=== PATIENT | female | born 1975 | race Caucasian/White ===

== ENCOUNTER 2017-08-01 08:24 | Emergency (ER) | payer MEDICAID ==
[~2017-08-01] VITALS: Ht 154.9 cm; Wt 95.3 kg
[~2017-08-01 08:24] MED LIST: FOLI200T13 PO
[2017-08-01] MEDS ORDERED: SODIUM CHLORIDE 0.9% 1,000ML IVBOLUS ONE (09:00)
[2017-08-01] MEDS ORDERED: ONDANSETRON 2MG/ML, 2ML IVPush ONE (09:00)
[2017-08-01 09:18] LABS: RAPID INFLUENZA A Negative (Negative); RAPID INFLUENZA B Negative (Negative)
[2017-08-01] MEDS ORDERED: ACETAMINOPHEN 325 MG TABLET PO ONE (10:00)
[2017-08-01] MEDS ORDERED: KETOROLAC 30 MG/1 ML IM ONE (10:00)
[2017-08-01] MEDS ORDERED: ONDANSETRON 2MG/ML, 2ML ONE (10:11)
[2017-08-01] MEDS ORDERED: KETOROLAC 30 MG/1 ML ONE (10:11)
[2017-08-01] MEDS ORDERED: ACETAMINOPHEN 325 MG TABLET ONE (10:11)
[2017-08-01 10:53] VITALS: BP 132/72
== END 2017-08-01 11:11 | disposition home or self-care (01) ==
LOC: ED 10:45
DX: B34.9 Viral infection, unspecified (principal)
CPT/HCPCS: 71020; 87400; 96361; 96372; 96374; 99285; J1885; J2405; J7030

== ENCOUNTER 2020-09-10 15:45 | Emergency (ER) | payer MEDICAID ==
[~2020-09-10] VITALS: Ht 157.5 cm; Wt 105.0 kg
[2020-09-10 15:59] VITALS: BP 149/100
[2020-09-10 16:33] LABS: MICROSCOPIC NOT IND
--- NOTE | 2020-09-10 17:43 | NUR ---
NO ANSWER IN LOBBY
--- NOTE | 2020-09-10 18:17 | NUR ---
NO ANSWER IN LOBBY
--- NOTE | 2020-09-10 18:30 | NUR ---
NO BLAYNE IN LOBBY.
[2020-09-10 19:02] LABS: BASOPHILS % (AUTO) 1 % (0-1); EOSINOPHILS % (AUTO) 2 % (1-7); LYMPHOCYTES % (AUTO) 33 % (22-44); MEAN CORPUSCULAR HEMOGLOBIN 31.6 pg (27.0-34.8); MEAN PLATELET VOLUME 7.3 fL (7.4-10.4); MONOCYTES % (AUTO) 6 % (2-9); NEUTROPHILS % (AUTO) 58 % (42-75); PLATELET COUNT 241 x10^3/uL (130-400); RED BLOOD COUNT 4.47 x10^6/uL (3.82-5.3); RED CELL DISTRIBUTION WIDTH 12.6 % (9.6-15.2)
[2020-09-10 19:09] LABS: ALANINE AMINOTRANSFERASE 28 U/L (12-78); ALBUMIN 3.3 g/dL (3.4-5.0); ANION GAP 4 mmol/L (5-15); CALCIUM 8.3 mg/dL (8.5-10.1); CHLORIDE 111 mmol/L (98-107)
[2020-09-10 19:10] LABS: MD NO
[2020-09-10 19:14] LABS: ALKALINE PHOSPHATASE 50 U/L (45-117); BILIRUBIN,TOTAL 0.2 mg/dL (0.2-1.0)
== END 2020-09-10 20:17 | disposition left against medical advice (07) ==
LOC: ED 20:03
DX: R10.9 Unspecified abdominal pain (principal); Z53.21 Procedure and treatment not carried out due to patient leaving prior to being seen by health care provider
CPT/HCPCS: 36415; 80053; 81003; 84703; 85025

== ENCOUNTER 2020-09-10 18:42 | Emergency (ER) | payer MEDICAID ==
[~2020-09-10] VITALS: Ht 154.9 cm; Wt 110.0 kg
--- NOTE | 2020-09-10 19:00 | NUR ---
BEDSIDE REPORT RECEIVED FROM ALDAIR GILLETTE
--- NOTE | 2020-09-10 19:05 | NUR ---
PT SITTING UPRIGHT ON GURNEY. NAD, VSS. PT REQUESTS PAIN MEDICATION. ERP NOTIFIED, WILL MEDICATE PER EMAR. PT DENIES ANY ADDITIONAL NEEDS AT THIS TIME, CALL LIGHT AND PERSONAL BELONGINGS WITHIN REACH.
--- NOTE | 2020-09-10 19:05 | NUR ---
Report given to NAIN Grover and care transferred. RN aware of need for UA sample and possible IV site but that labs have already been drawn. RN aware of triage only note assessment completed by this RN.
--- NOTE | 2020-09-10 19:15 | NUR ---
PT TO IMAGING
[2020-09-10] MEDS ORDERED: KETOROLAC 30 MG/1 ML ONE (19:21)
[2020-09-10] MEDS ORDERED: KETOROLAC 30 MG/1 ML IM ONE (19:30)
[2020-09-10 19:44] VITALS: BP 144/104
--- NOTE | 2020-09-10 19:49 | NUR ---
ERP AT BEDSIDE
--- NOTE | 2020-09-10 19:55 | NUR ---
Patient given discharge instructions and they have confirmed that they understand the instructions. Patient ambulatory with steady gait.
== END 2020-09-10 19:59 | disposition home or self-care (01) ==
LOC: ED 19:30
DX: S39.012A Strain of muscle, fascia and tendon of lower back, initial encounter (principal); R10.9 Unspecified abdominal pain; Z98.51 Tubal ligation status; X58.XXXA Exposure to other specified factors, initial encounter; Y93.89 Activity, other specified; Y92.89 Other specified places as the place of occurrence of the external cause; Y99.8 Other external cause status
CPT/HCPCS: 74176; 96372; 99284; J1885

== ENCOUNTER 2021-02-21 22:37 | Emergency (ER) | payer MEDICAID ==
[~2021-02-21] VITALS: Ht 162.6 cm; Wt 95.4 kg
[2021-02-21] MEDS ORDERED: DIPH,PERTUSS(ACELL),TET VAC/PF 0.5 ML IM-VACC ONE ×2 (23:00→23:06)
[2021-02-21] MEDS ORDERED: LIDOCAINE 1%-EPI 1:100K, 20ML INFIL ONE (23:00)
[2021-02-21] MEDS ORDERED: OXYcodone/APAP 5/325MG TABLET PO ONE (23:00)
[2021-02-21] MEDS ORDERED: OXYcodone/APAP 5/325MG TABLET ONE (23:06)
[2021-02-22 00:39] VITALS: BP 136/82
[2021-02-22] MEDS ORDERED: NEOSPORIN OINT. PKT 1 PACKET ONE ×2 (00:56→01:25)
== END 2021-02-22 01:55 | disposition home or self-care (01) ==
LOC: ED 23:07
DX: S81.851A Open bite, right lower leg, initial encounter (principal); I10 Essential (primary) hypertension; F17.210 Nicotine dependence, cigarettes, uncomplicated; W54.0XXA Bitten by dog, initial encounter; Y93.89 Activity, other specified; Y92.009 Unspecified place in unspecified non-institutional (private) residence as the place of occurrence of the external cause; Y99.8 Other external cause status
CPT/HCPCS: 12034; 90471; 90715; 99284